=== PATIENT | female | born 1970 | race Caucasian/White ===

== ENCOUNTER → 2017-06-10 | Outpatient (CLI) | payer OTHER ==
--- NOTE | 2017-06-12 08:59 | MM ---
Reason for exam: screening (asymptomatic). Last mammogram was performed 1 year ago. History: Patient has history of colon cancer at age 40 and had first child at age 33. Excisional biopsy of the left breast, December 2011. Benign US LT VAD breast biopsy of the left breast, December 18, 2011. Took hormonal contraceptives for 2 years beginning at age 26. Physical Findings: A clinical breast exam by your physician is recommended on an annual basis and results should be correlated with mammographic findings. MG 3D Screening Mammo W/Cad Bilateral CC and MLO view(s) were taken. Prior study comparison: June 09, 2016, bilateral MG screening mammo w CAD. June 08, 2015, bilateral MG screening mammo w CAD. The breast tissue is heterogeneously dense. This may lower the sensitivity of mammography. No significant changes when compared with prior studies. ASSESSMENT: Benign, BI-RAD 2 RECOMMENDATION: Routine screening mammogram of both breasts in 1 year.
== END | disposition home or self-care (01) ==
LOC: RADMAMWWP 08:00
PROVIDERS: ATTEND Obstetrics & Gynecology
DX: Z12.31 Encounter for screening mammogram for malignant neoplasm of breast (principal)
CPT/HCPCS: 77063; G0202

== ENCOUNTER → 2018-06-17 | Outpatient (CLI) | payer OTHER ==
--- NOTE | 2018-06-18 13:12 | MM ---
Reason for exam: screening (asymptomatic). Last mammogram was performed 1 year ago. History: Patient has history of colon cancer at age 40 and had first child at age 33. Excisional biopsy of the left breast, December 2011. Benign US LT VAD breast biopsy of the left breast, December 18, 2011. Took hormonal contraceptives for 2 years beginning at age 26. Physical Findings: A clinical breast exam by your physician is recommended on an annual basis and results should be correlated with mammographic findings. MG 3D Screening Mammo W/Cad Bilateral CC and MLO view(s) were taken. Prior study comparison: June 10, 2017, bilateral MG 3d screening mammo w/cad. June 09, 2016, bilateral MG screening mammo w CAD. The breast tissue is heterogeneously dense. This may lower the sensitivity of mammography. Focal asymmetry 7.3cm from nipple right MLO view. This finding is changed when compared with previous exams. ASSESSMENT: Incomplete: need additional imaging evaluation, BI-RAD 0 RECOMMENDATION: Special view mammogram of the right breast. If lesion persists on supplemental views, image directed ultrasound is recommended. [facility] will attempt to contact patient to return for supplemental views and ultrasound if indicated.
== END | disposition home or self-care (01) ==
LOC: RADMAMWWP 08:42
PROVIDERS: ATTEND Obstetrics & Gynecology
DX: Z12.31 Encounter for screening mammogram for malignant neoplasm of breast (principal)
CPT/HCPCS: 77063; 77067

== ENCOUNTER → 2018-06-22 | Outpatient (CLI) | payer OTHER ==
--- NOTE | 2018-06-22 09:19 | MM ---
Reason for exam: additional evaluation requested from abnormal screening. Last mammogram was performed less than 1 month ago. History: Patient has history of colon cancer at age 40 and had first child at age 33. Excisional biopsy of the left breast, December 2011. Benign US LT VAD breast biopsy of the left breast, December 18, 2011. Took hormonal contraceptives for 2 years beginning at age 26. Physical Findings: Nurse did not find any significant physical abnormalities on exam. MG 3D Work Up W/Cad RT Spot compression CC, spot compression MLO, and LM view(s) were taken of the right breast. Prior study comparison: June 17, 2018, bilateral MG 3d screening mammo w/cad. June 10, 2017, bilateral MG 3d screening mammo w/cad. The breast tissue is heterogeneously dense. This may lower the sensitivity of mammography. The previously seen abnormality does not persist on additional views and appears as fibroglandular tissue on prior exams. These results were verbally communicated with the patient and result sheet given to the patient on 06/22/18. ASSESSMENT: Benign, BI-RAD 2 RECOMMENDATION: Return to routine screening mammogram schedule for both breasts.
== END | disposition home or self-care (01) ==
LOC: RADMAMWWP 08:18
PROVIDERS: ATTEND Obstetrics & Gynecology
DX: R92.8 Other abnormal and inconclusive findings on diagnostic imaging of breast (principal)
CPT/HCPCS: 77061; 77065

== ENCOUNTER → 2019-06-27 | Outpatient (CLI) | payer OTHER ==
--- NOTE | 2019-06-27 10:20 | MM ---
Reason for exam: screening (asymptomatic). Last mammogram was performed 1 year ago. History: Patient has history of colon cancer at age 40 and had first child at age 33. Excisional biopsy of the left breast, December 2011. Benign US LT VAD breast biopsy of the left breast, December 18, 2011. Took hormonal contraceptives for 2 years beginning at age 26. Physical Findings: A clinical breast exam by your physician is recommended on an annual basis and results should be correlated with mammographic findings. MG 3D Screening Mammo W/Cad Bilateral CC and MLO view(s) were taken. Prior study comparison: June 22, 2018, right breast MG 3d work up w/cad RT. June 17, 2018, bilateral MG 3d screening mammo w/cad. The breast tissue is heterogeneously dense. This may lower the sensitivity of mammography. No suspicious abnormality. No significant changes when compared with prior studies. ASSESSMENT: Negative, BI-RAD 1 RECOMMENDATION: Routine screening mammogram of both breasts in 1 year.
== END | disposition home or self-care (01) ==
LOC: RADMAMWWP 08:34
PROVIDERS: ATTEND Obstetrics & Gynecology
DX: Z12.31 Encounter for screening mammogram for malignant neoplasm of breast (principal)
CPT/HCPCS: 77063; 77067

== ENCOUNTER → 2020-07-12 | Outpatient (CLI) | payer OTHER ==
--- NOTE | 2020-07-16 09:27 | MM ---
Reason for exam: screening (asymptomatic). Last mammogram was performed 1 year ago. History: Patient has history of colon cancer at age 40 and had first child at age 33. Excisional biopsy of the left breast, December 2011. Benign US LT VAD breast biopsy of the left breast, December 18, 2011. Took hormonal contraceptives for 2 years beginning at age 26. Physical Findings: A clinical breast exam by your physician is recommended on an annual basis and results should be correlated with mammographic findings. MG 3D Screening Mammo W/Cad Bilateral CC and MLO view(s) were taken. Prior study comparison: June 27, 2019, bilateral MG 3d screening mammo w/cad. June 22, 2018, right breast MG 3d work up w/cad RT. The breast tissue is heterogeneously dense. This may lower the sensitivity of mammography. Focal asymmetry right CC view outer middle postition, not on XCCL. This finding is changed when compared with previous exams. ASSESSMENT: Incomplete: need additional imaging evaluation, BI-RAD 0 RECOMMENDATION: Special view mammogram of the right breast. If lesion persists on supplemental views, image directed ultrasound is recommended. [facility] will attempt to contact patient to return for supplemental views and ultrasound if indicated.
== END | disposition home or self-care (01) ==
LOC: RADMAMWWP 10:01
PROVIDERS: ATTEND Obstetrics & Gynecology
DX: Z12.31 Encounter for screening mammogram for malignant neoplasm of breast (principal)
CPT/HCPCS: 77063; 77067

== ENCOUNTER → 2020-07-17 | Outpatient (CLI) | payer OTHER ==
--- NOTE | 2020-07-17 09:15 | MM ---
Reason for exam: additional evaluation requested from abnormal screening. Last mammogram was performed less than 1 month ago. History: Patient has history of colon cancer at age 40 and had first child at age 33. Excisional biopsy of the left breast, December 2011. Benign US LT VAD breast biopsy of the left breast, December 18, 2011. Took hormonal contraceptives for 2 years beginning at age 26. Physical Findings: Nurse did not find any significant physical abnormalities on exam. MG 3D Work Up W/Cad RT CC and MLO view(s) were taken of the right breast. Prior study comparison: July 12, 2020, bilateral MG 3d screening mammo w/cad. June 27, 2019, bilateral MG 3d screening mammo w/cad. There are scattered fibroglandular densities. Central asymmetric density does not persist on spot 3D images. These results were verbally communicated with the patient and result sheet given to the patient on 07/17/20. ASSESSMENT: Negative, BI-RAD 1 RECOMMENDATION: Return to routine screening mammogram schedule for both breasts.
== END | disposition home or self-care (01) ==
LOC: RADMAMWWP 08:19
PROVIDERS: ATTEND Obstetrics & Gynecology
DX: R92.8 Other abnormal and inconclusive findings on diagnostic imaging of breast (principal)
CPT/HCPCS: 77061; 77065

== ENCOUNTER → 2021-07-23 | Outpatient (CLI) | payer BC ==
[2021-07-23 10:06] VITALS: BP 101/65; PULSE 71; RESP 16; TEMP 98.1
--- NOTE | 2021-07-23 11:04 | P.HPOB ---
History of Present Illness H&P Date: 07/23/21 Chief Complaint: The patient is here for her routine gynecologic exam and ma mmogram. This is a 51-year-old with an LMP of 07/09/2021. The patient is here to establish with this office. She is without gynecologic complaints. Her is status post vasectomy. Her menstrual periods are regular every month. Review of Systems The patient believes she has gained about 15 pounds over the past 2 years. She denies respiratory, cardiac, or GI problems. Past Medical History Past Medical History: Cancer Additional Past Medical History / Comment(s): hx colon cancer 2010 s/p colon resection and chemo. Seasonal ALLERGIES. 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 History of Any Multi-Drug Resistant Organisms: None Reported Past Surgical History: Bowel Resection, Section Additional Past Surgical History / Comment(s): Bowel resection for cancer in 2010. colonoscopy 2018(next after 2-3yr). 2 Past Anesthesia/Blood Transfusion Reactions: Motion Sickness, Postoperative Nausea & Vomiting (PONV) Past Psychological History: Depression Smoking Status: Never smoker Past Alcohol Use History: Occasional (4 or 5 per week) Past Drug Use History: None Reported Additional History: She has been since 1997 and does not work outside the home. - Past Family History Mother Family Medical History: No Reported History Additional Family Medical History / Comment(s): Maternal aunt had ovarian cancer. There is no other history of cancer of the breast, uterus, ovaries, or colon. Father Family Medical History: No Reported History Medications and Allergies Home Medications Medication Instructions Recorded Confirmed Type ALPRAZolam [Xanax] 0.5 mg PO DIRECTED PRN 07/11/16 07/23/21 History Citalopram Hydrobromide [CeleXA] 20 mg PO 1500 07/11/16 07/23/21 History Loratadine [Claritin] 10 mg PO DAILY PRN 07/11/16 07/23/21 History Melatonin 5 mg PO HS 07/11/16 07/23/21 History Multivitamins, Thera [Multivitamin] 1 tab PO DAILY 07/11/16 07/23/21 History Temazepam [Restoril] 30 mg PO HS 07/11/16 07/23/21 History Allergies Allergy/AdvReac Type Severity Reaction Status Date / Time No Known Allergies Allergy Verified 07/23/21 10:01 Exam Vital Signs Temp Pulse Resp BP Pulse Ox 07/23/21 10:01 98.1 F 71 16 101/65 100 Intake and Output 07/22/21 07/23/21 07/23/21 22:59 06:59 14:59 Other: Weight 66.678 kg Height 5 feet 4-1/2 inches, weight 147 pounds, BMI 24.8. This is a well-developed well-nourished white female who is alert and oriented times 3 in no acute distress. HEENT: Within normal limits. NECK: Supple without mass or thyromegaly. CHEST AND LUNGS: Clear to auscultation. HEART: Regular rate and rhythm. BREASTS: Are without mass or discharge. AXILLARY EXAM: Negative for adenopathy. BACK: Negative for CVA tenderness. ABDOMEN: Soft, nontender, without palpable masses. PELVIC EXAM: Normal external genitalia. Cervix and vagina appear normal. Cervix appears nulliparous. There is no unusual discharge. There is no evidence of prolapse. The uterus is midposition, nongravid size and nontender. There are no palpable adnexal masses or tenderness. RECTAL EXAM: Rectovaginal exam is negative for mass or tenderness and is negative for occult blood. EXTREMITIES: Nontender. IMPRESSION: 1. 51 year old premenopausal female whose is status post vasectomy, with normal gynecologic exam. 2. History of colon cancer in 2010 with no evidence of recurrence on exam today. PLAN: 1. Pap smear cotest was performed. 2. Self breast awareness was discussed with the patient. We have also discussed symptoms associated with inflammatory breast cancer. 3. Screening mammogram will be done today. 4. Osteoporosis prevention was discussed. I have stressed the importance of adequate calcium, vitamin D and regular exercise. Recommended amounts of calcium and vitamin D were also discussed. 5. She has completed her Covid vaccination series. 6. She was advised to return in one year for her annual well woman exam.
== END ==
LOC: WWCWWP 09:52
PROVIDERS: ATTEND Obstetrics & Gynecology
DX: Z12.31 Encounter for screening mammogram for malignant neoplasm of breast (principal); Z01.419 Encounter for gynecological examination (general) (routine) without abnormal findings; F32.A Depression, unspecified; Z85.038 Personal history of other malignant neoplasm of large intestine
CPT/HCPCS: 77067

== ENCOUNTER → 2022-07-29 | Outpatient (CLI) | payer BC ==
[2022-07-29 08:12] VITALS: BP 116/84; PULSE 66; RESP 15
--- NOTE | 2022-07-29 08:43 | P.HPOB ---
History of Present Illness H&P Date: 07/29/22 Chief Complaint: The patient is here for her routine gynecologic exam and ma mmogram. This is a 52-year-old with an LMP of 05/29/2022. The patient's is status post vasectomy. Her menstrual periods were regular about every 3-1/2 weeks until her LMP. It has now been about 2 months since her LMP. She denies hot flashes. She is otherwise without complaints. Review of Systems The patient has lost 9 pounds over the last year. She attributes the weight loss 2 increased stress associated with her mother's health conditions. She denies respiratory, cardiac, or G.I. problems. Past Medical History Past Medical History: Cancer Additional Past Medical History / Comment(s): hx colon cancer 2010 s/p colon resection and chemo. Seasonal ALLERGIES. 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 History of Any Multi-Drug Resistant Organisms: None Reported Past Surgical History: Bowel Resection, Section Additional Past Surgical History / Comment(s): Bowel resection for cancer in 2010. colonoscopy 2018(next after 2-3yr). 2 Past Anesthesia/Blood Transfusion Reactions: Motion Sickness, Postoperative Nausea & Vomiting (PONV) Past Psychological History: Depression Smoking Status: Never smoker Past Alcohol Use History: Occasional (3 glasses of wine per week) Past Drug Use History: None Reported Additional History: She has been since 1997 and does not work outside of the home. - Past Family History Mother Family Medical History: No Reported History Additional Family Medical History / Comment(s): Maternal aunt had ovarian cancer. There is no other history of cancer of the breast, uterus, ovaries, or colon. Father Family Medical History: No Reported History Medications and Allergies Home Medications Medication Instructions Recorded Confirmed Type ALPRAZolam [Xanax] 0.5 mg PO DIRECTED PRN 07/11/16 07/29/22 History Citalopram Hydrobromide [CeleXA] 20 mg PO 1500 07/11/16 07/29/22 History Loratadine [Claritin] 10 mg PO DAILY PRN 07/11/16 07/29/22 History Melatonin 5 mg PO HS 07/11/16 07/29/22 History Multivitamins, Thera [Multivitamin] 1 tab PO DAILY 07/11/16 07/29/22 History Temazepam [Restoril] 30 mg PO HS 07/11/16 07/29/22 History Cholecalciferol [Vitamin D3 (25 25 mcg PO DAILY 07/29/22 07/29/22 History Mcg = 1000 Iu)] Allergies Allergy/AdvReac Type Severity Reaction Status Date / Time No Known Allergies Allergy Verified 07/29/22 08:07 Exam Vital Signs Pulse Resp BP Pulse Ox 07/29/22 08:09 66 15 116/84 100 Intake and Output 07/28/22 07/29/22 07/29/22 22:59 06:59 14:59 Other: Weight 62.596 kg Height 5 feet 4 inches, weight 138 pounds, BMI 23.7. This is a well-developed well-nourished white female who is alert and oriented times 3 in no acute distress. HEENT: Within normal limits. NECK: Supple without mass or thyromegaly. CHEST AND LUNGS: Clear to auscultation. HEART: Regular rate and rhythm. BREASTS: Are without mass or discharge. AXILLARY EXAM: Negative for adenopathy. BACK: Negative for CVA tenderness. ABDOMEN: Soft, nontender, without palpable masses. PELVIC EXAM: Normal external genitalia. Cervix and vagina appear normal. There is no unusual discharge. There is no evidence of prolapse. The uterus is midposition, nongravid size and nontender. There are no palpable adnexal masses or tenderness. RECTAL EXAM: Rectovaginal exam is negative for mass or tenderness and is negative for occult blood. EXTREMITIES: Nontender. IMPRESSION: 1. 52-year-old perimenopausal female whose is status post vasectomy with normal gynecologic exam. 2. History of colon cancer with no evidence of recurrence on exam today. PLAN: 1. Pap smear was deferred since she had a negative Pap smear cotest on 07/23/2021. 2. Self breast awareness was discussed with the patient. We have also discussed symptoms associated with inflammatory breast cancer. 3. Screening mammogram will be done today. 4. Osteoporosis prevention was discussed. I have stressed the importance of adequate calcium, vitamin D and regular exercise. Recommended amounts of calcium and vitamin D were also discussed. 5. She has completed her colvid vaccination series and has received 1 booster. 6. She is due for her colonoscopy and states she will be seeing Dr. Workman for this. 7. She was advised to return in one year for her annual well woman exam.
--- NOTE | 2022-07-30 09:07 | MM ---
Reason for Exam: Screening (asymptomatic). Last mammogram was performed 1 year(s) and 1 month(s) ago. Patient History: Menarche at age 13. First Full-Term at age 33. Late child-bearing (after 30). Perimenopausal. Colorectal cancer, age 40. Previous chest radiation therapy. Hormonal Contraceptives for 2 years from age 26 until age 29. 12/2011, Excisional Biopsy on the Left side. 12/18/2011, Benign Core Biopsy on the left side. Risk Values: Priyanka 5 year model risk: 2.1%. NCI Lifetime model risk: 17.4%. Prior Study Comparison: 07/12/2020 Bilateral Screening Mammogram, [facility]. 07/17/2020 Right Diagnostic Mammogram, [facility]. 07/23/2021 Bilateral Screening Mammogram, [facility]. Tissue Density: There are scattered fibroglandular densities. Findings: Analyzed By CAD. There is no suspicious group of microcalcifications or new suspicious mass in either breast. Overall Assessment: Negative, BI-RAD 1 Management: Screening Mammogram of both breasts in 1 year. A clinical breast exam by your physician is recommended on an annual basis and results should be correlated with mammographic findings. [facility] will attempt to contact patient to return for supplemental views and ultrasound if indicated. Electronically signed and approved by: Munir Nails DO
== END ==
LOC: WWCWWP 08:00
PROVIDERS: ATTEND Obstetrics & Gynecology
DX: Z01.419 Encounter for gynecological examination (general) (routine) without abnormal findings (principal); Z12.31 Encounter for screening mammogram for malignant neoplasm of breast; Z85.038 Personal history of other malignant neoplasm of large intestine
CPT/HCPCS: 77063; 77067

== ENCOUNTER 2022-12-23 08:50 | Day surgery (SDC) | payer BC ==
[2022-12-16 12:26] VITALS: BMI 23.1
[2022-12-23 09:38] VITALS: TEMP 98
[2022-12-23] MEDS ORDERED: LIDOCAINE 1% (10MG/ML) FOR IV START INTRADERMA ONE (09:49)
[2022-12-23] MEDS ORDERED: LACTATED RINGERS 1,000 ML IV ONE ×2 (09:49)
[2022-12-23] MEDS ORDERED: PROPOFOL 10 MG/ML 20 ML VIAL IV ONE (09:50)
--- NOTE | 2022-12-23 09:56 | P.GSHP ---
History of Present Illness H&P Date: 12/23/22 Chief Complaint: Colon cancer screening, history of colon cancer 52-year-old female here for colonoscopy. Last colonoscopy 3 years ago. Patient was having some mild pulling discomfort on the right-hand side recently. No bowel complaints. History of previous right colectomy for cancer. Past Medical History Past Medical History: Cancer Additional Past Medical History / Comment(s): hx colon cancer 2010 s/p colon resection and chemo. Seasonal ALLERGIES. 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 History of Any Multi-Drug Resistant Organisms: None Reported Past Surgical History: Bowel Resection, Section Additional Past Surgical History / Comment(s): Bowel resection for cancer in 2010. colonoscopy 2019(next after 2-3yr). 2 Past Anesthesia/Blood Transfusion Reactions: Motion Sickness, Postoperative Nausea & Vomiting (PONV) Smoking Status: Never smoker - Past Family History Mother Family Medical History: No Reported History Additional Family Medical History / Comment(s): Maternal aunt had ovarian cancer. There is no other history of cancer of the breast, uterus, ovaries, or colon. Father Family Medical History: No Reported History Medications and Allergies Home Medications Medication Instructions Recorded Confirmed Type ALPRAZolam [Xanax] 0.5 mg PO DIRECTED PRN 07/11/16 12/23/22 History Citalopram Hydrobromide [CeleXA] 20 mg PO 1500 07/11/16 12/23/22 History Loratadine [Claritin] 10 mg PO DAILY PRN 07/11/16 12/23/22 History Melatonin 5 mg PO HS 07/11/16 12/23/22 History Multivitamins, Thera [Multivitamin] 1 tab PO DAILY 07/11/16 12/23/22 History Temazepam [Restoril] 30 mg PO HS 07/11/16 12/23/22 History Cholecalciferol [Vitamin D3 (25 25 mcg PO DAILY 07/29/22 12/23/22 History Mcg = 1000 Iu)] Allergies Allergy/AdvReac Type Severity Reaction Status Date / Time No Known Allergies Allergy Verified 12/23/22 09:41 Surgical - Exam Vital Signs Temp Pulse Resp BP Pulse Ox 98.0 F 72 18 149/65 99 12/23/22 09:31 12/23/22 09:31 12/23/22 09:31 12/23/22 09:31 12/23/22 09:31 Physical exam: General: Well-developed, well-nourished HEENT: Normocephalic, sclerae nonicteric Abdomen: Nontender, nondistended Extremities: No edema Neuro: Alert and oriented Assessment and Plan (1) Colon cancer screening Narrative/Plan: Will proceed with colonoscopy at this time. Current Visit: Yes Status: Acute Code(s): Z12.11 - ENCOUNTER FOR SCREENING FOR MALIGNANT NEOPLASM OF COLON SNOMED Code(s): 917096320
--- NOTE | 2022-12-23 10:11 | P.PCN ---
Date of Procedure: 12/23/22 Procedure(s) Performed: PREOPERATIVE DIAGNOSIS: History of colon cancer POSTOPERATIVE DIAGNOSIS: Normal exam post-right colectomy PROCEDURE: Colonoscopy ANESTHESIA: MAC SURGEON: Jose Workman M.D. SPECIMENS: None ENDOSCOPIC PROCEDURE: The patient was placed on the endoscopy table in the left decubitus position. The Olympus colonoscope was inserted into the anus and passed under direct visualization to the ileocolonic anastomosis. From that point the scope was slowly withdrawn inspecting all surfaces carefully. There were no neoplastic inflammatory or polypoid lesions throughout the transverse, descending, sigmoid and rectum. There was no visible diverticulosis noted. Digital rectal examination was normal. The patient was taken to the recovery room in stable condition per anesthesia guidelines. RECOMMENDATIONS: Resume diet. Repeat colonoscopy 3 years. If patient's abdominal pain persists consider CT abdomen and pelvis.
[2022-12-23 10:20] VITALS: RESP 16
[2022-12-23 10:42] VITALS: BP 105/62; PULSE 65
== END 2022-12-23 11:03 | disposition home or self-care (01) ==
LOC: ORWHC2ENDO 08:50
PROVIDERS: ATTEND Surgery
DX: Z12.11 Encounter for screening for malignant neoplasm of colon (principal); K57.30 Diverticulosis of large intestine without perforation or abscess without bleeding; Z86.010 Personal history of colon polyps; Z90.49 Acquired absence of other specified parts of digestive tract; Z79.899 Other long term (current) drug therapy
CPT/HCPCS: 81025; 45378; J2704

== ENCOUNTER → 2023-08-04 | Outpatient (CLI) | payer BC ==
--- NOTE | 2023-08-04 10:01 | P.HPOB ---
History of Present Illness H&P Date: 08/04/23 Chief Complaint: The patient is here for her routine gynecologic exam and ma mmogram. This is a 53-year-old with an LMP of 07/26/2023. The patient's is status post vasectomy. Menstrual periods have been somewhat irregular every 1-1/2-3 months during the past year. She denies any significant hot flashes. She is otherwise without gynecologic complaints. Review of Systems The patient has lost 12 pounds over the last year. She denies respiratory, cardiac, or G.I. problems. Past Medical History Past Medical History: Cancer Additional Past Medical History / Comment(s): hx colon cancer 2010 s/p colon resection and chemo. Seasonal ALLERGIES. 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 History of Any Multi-Drug Resistant Organisms: None Reported Past Surgical History: Bowel Resection, Section Additional Past Surgical History / Comment(s): Bowel resection for cancer in 2010. colonoscopy 2022(next after 3yr). 2 Past Anesthesia/Blood Transfusion Reactions: Motion Sickness, Postoperative Nausea & Vomiting (PONV) Smoking Status: Never smoker Past Alcohol Use History: Occasional (2-3 glasses of wine per week.) Past Drug Use History: None Reported Additional History: She has been since 1997 and does not work outside the home. - Past Family History Mother Family Medical History: No Reported History Additional Family Medical History / Comment(s): Maternal aunt had ovarian cancer. There is no other history of cancer of the breast, uterus, ovaries, or colon. Father Family Medical History: No Reported History Medications and Allergies Home Medications Medication Instructions Recorded Confirmed Type ALPRAZolam [Xanax] 0.5 mg PO DIRECTED PRN 07/11/16 08/04/23 History Citalopram Hydrobromide [CeleXA] 20 mg PO 1500 07/11/16 08/04/23 History Loratadine [Claritin] 10 mg PO DAILY PRN 07/11/16 08/04/23 History Melatonin 5 mg PO HS 07/11/16 08/04/23 History Multivitamins, Thera [Multivitamin] 1 tab PO DAILY 07/11/16 08/04/23 History Temazepam [Restoril] 30 mg PO HS 07/11/16 08/04/23 History Cholecalciferol [Vitamin D3 (25 25 mcg PO DAILY 07/29/22 08/04/23 History Mcg = 1000 Iu)] Allergies Allergy/AdvReac Type Severity Reaction Status Date / Time No Known Allergies Allergy Verified 08/04/23 09:23 Exam Intake and Output 08/03/23 08/04/23 08/04/23 22:59 06:59 14:59 Other: Weight 57.153 kg Blood pressure 114/74, height 5 feet 4 inches, weight 126 pounds, BMI 21.6, temperature 97.8, pulse 62, pulse oximeter 99%. This is a well-developed well-nourished white female who is alert and oriented times 3 in no acute distress. HEENT: Within normal limits. NECK: Supple without mass or thyromegaly. CHEST AND LUNGS: Clear to auscultation. HEART: Regular rate and rhythm. BREASTS: Are without mass or discharge. AXILLARY EXAM: Negative for adenopathy. BACK: Negative for CVA tenderness. ABDOMEN: Soft, nontender, without palpable masses. PELVIC EXAM: Normal external genitalia with minimal atrophy. Cervix and vagina appear normal. There is no unusual discharge. There is no evidence of prolapse. The uterus is midposition, nongravid size and nontender. There are no palpable adnexal masses or tenderness. RECTAL EXAM: Rectovaginal exam is negative for mass or tenderness and is negative for occult blood. EXTREMITIES: Nontender. IMPRESSION: 1. 53-year-old perimenopausal female whose is status post vasectomy with one year history of mild menstrual irregularity without vasomotor symptoms, with normal gynecologic exam. 2. History of colon cancer with no evidence of recurrence on exam. PLAN: 1. Pap smear was deferred since she had a negative Pap smear cotest on 07/13/2022. 2. Self breast awareness was discussed with the patient. We have also discussed symptoms associated with inflammatory breast cancer. 3. Screening mammogram will be done today. 4. Osteoporosis prevention was discussed. I have stressed the importance of adequate calcium, vitamin D and regular exercise. Recommended amounts of calcium and vitamin D were also discussed. 5. She will continue to keep a menstrual calendar and call if menstrual prob lems. 6. She was advised to return in one year for her annual well woman exam.
[2023-08-04 10:16] VITALS: BP 114/74; PULSE 62; RESP 17; TEMP 97.8
--- NOTE | 2023-08-05 11:18 | MM ---
Reason for Exam: Screening (asymptomatic). Last screening mammogram was performed 12 month(s) ago. Patient History: Menarche at age 13. First Full-Term at age 33. Late child-bearing (after 30). Perimenopausal. Colorectal cancer, age 40. Previous chest radiation therapy. Hormonal Contraceptives for 2 years from age 26 until age 29. 12/2011, Excisional Biopsy on the Left side. 12/18/2011, Benign Core Biopsy on the left side. Risk Values: Priyanka 5 year model risk: 2.2%. NCI Lifetime model risk: 17.1%. Prior Study Comparison: 07/17/2020 Right Diagnostic Mammogram, [facility]. 07/23/2021 Bilateral Screening Mammogram, [facility]. 07/29/2022 Bilateral MG 3D screening mammo w/cad, [facility]. Tissue Density: The breast tissue is heterogeneously dense. This may lower the sensitivity of mammography. Findings: Analyzed By CAD. Asymmetric density upper outer right breast 8.8 cm from the nipple. Left breast is free of asymmetric density or mass. No suspicious dilatation seen. ASSESSMENT:. Overall Assessment: Incomplete: need additional imaging evaluation, BI-RAD 0 Management: Diagnostic Mammogram of the right breast. . Patient should continue monthly self-breast exams. A clinical breast exam by your physician is recommended on an annual basis. This exam should not preclude additional follow-up of suspicious palpable abnormalities. Note on Priyanka scores and lifetime risk: 1. A Priyanka score greater than 3% is considered moderate risk. If this is the case, consider specialist referral to assess eligibility for a risk reducing agent. 2. If overall lifetime risk for the development of breast cancer is 20% or higher, the patient may qualify for future screening with alternating mammogram and breast MRI. Electronically signed and approved by: Ha Higginbotham M.D. Radiologis
== END ==
LOC: WWCWWP 09:10
PROVIDERS: ATTEND Obstetrics & Gynecology
DX: Z12.31 Encounter for screening mammogram for malignant neoplasm of breast (principal); Z85.038 Personal history of other malignant neoplasm of large intestine; Z78.0 Asymptomatic menopausal state; Z92.21 Personal history of antineoplastic chemotherapy
CPT/HCPCS: 77063; 77067

== ENCOUNTER → 2023-08-06 | Outpatient (CLI) | payer BC ==
--- NOTE | 2023-08-06 14:34 | MM ---
Reason for Exam: Additional evaluation requested from abnormal screening. Last screening mammogram was performed less than 1 month ago. Patient History: Menarche at age 13. First Full-Term at age 33. Late child-bearing (after 30). Perimenopausal. Colorectal cancer, age 40. Previous chest radiation therapy. Hormonal Contraceptives for 2 years from age 26 until age 29. 12/2011, Excisional Biopsy on the Left side. 12/18/2011, Benign Core Biopsy on the left side. Risk Values: Priyanka 5 year model risk: 2.2%. NCI Lifetime model risk: 17.1%. Tissue Density: Right: The breast tissue is heterogeneously dense. This may lower the sensitivity of mammography. Findings: Analyzed By CAD. Stable asymmetric density upper outer right breast 8.5 cm from the nipple. Additional views are recommended. Overall Assessment: Incomplete: need additional imaging evaluation, BI-RAD 0 Management: Diagnostic Mammogram of the right breast. . Results were given to the patient verbally at the time of exam. Patient should continue monthly self-breast exams. A clinical breast exam by your physician is recommended on an annual basis. This exam should not preclude additional follow-up of suspicious palpable abnormalities. Note on Priyanka scores and lifetime risk: 1. A Priyanka score greater than 3% is considered moderate risk. If this is the case, consider specialist referral to assess eligibility for a risk reducing agent. 2. If overall lifetime risk for the development of breast cancer is 20% or higher, the patient may qualify for future screening with alternating mammogram and breast MRI. Electronically signed and approved by: Ha Higginbotham M.D. Radiologis
--- NOTE | 2023-08-10 09:33 | USB ---
Reason for Exam: Additional evaluation requested from abnormal screening. Patient History: Menarche at age 13. First Full-Term at age 33. Late child-bearing (after 30). Perimenopausal. Colorectal cancer, age 40. Previous chest radiation therapy. Hormonal Contraceptives for 2 years from age 26 until age 29. 12/2011, Excisional Biopsy on the Left side. 12/18/2011, Benign Core Biopsy on the left side. Risk Values: Priyanka 5 year model risk: 2.2%. NCI Lifetime model risk: 17.1%. Technique: Method: Targeted. Prior Study Comparison: 07/23/2021 Bilateral Screening Mammogram, [facility]. 07/29/2022 Bilateral MG 3D screening mammo w/cad, [facility]. 08/04/2023 Bilateral MG 3D screening mammo w/cad, [facility]. Findings: The upper outer quadrant of the right breast, the axilla of the right breast and the retroareolar of the right breast were scanned. Small elongate hypoechoic lesion too small to characterize although likely reflecting a small cyst. Located at the right 10:00 position 9 cm from the nipple measuring 5.2 mm. Six-month follow-up is recommended. Overall Assessment: Probably benign, BI-RAD 3 Management: Diagnostic Mammogram of the right breast in 6 months. A clinical breast exam by your physician is recommended on an annual basis and results should be correlated with mammographic findings. This exam should not preclude additional follow-up of suspicious palpable abnormalities. Results were given to the patient verbally at the time of exam. Electronically signed and approved by: Ha Higginbotham M.D. Radiologis
--- NOTE | 2023-08-11 12:18 | P.PN ---
Progress Note - Text Progress Note Date: 08/11/23 OUTPATIENT FOLLOW-UP NOTE TEST(S)/RESULTS: Screening mammogram done on 08/04/2023 was incomplete and a right breast workup was required. A diagnostic right mammogram with right breast ultrasound was done on 08/06/2023 and was probably benign. METHOD OF NOTIFICATION: The patient was notified by the radiology Department on 08/06/2023. PATIENT COMMENTS: DIAGNOSIS: Probably benign mammogram with right breast workup. DISCUSSION: 6 month diagnostic right breast mammogram was recommended. The o rder slip will be mailed to the patient for this. PLAN: Above.
== END | disposition home or self-care (01) ==
LOC: RADMAMWWP 14:07
PROVIDERS: ATTEND Obstetrics & Gynecology
DX: R92.331 Mammographic heterogeneous density, right breast (principal)
CPT/HCPCS: 77061; 77065

== ENCOUNTER → 2024-02-09 | Outpatient (CLI) | payer BC ==
--- NOTE | 2024-02-09 09:48 | MM ---
Reason for Exam: Follow-up at short interval from prior study. Last screening mammogram was performed 6 month(s) ago. Patient History: Menarche at age 13. First Full-Term at age 33. Late child-bearing (after 30). Perimenopausal. Patient has history of breast feeding. Colorectal cancer, age 40. Previous chest radiation therapy. Hormonal Contraceptives for 2 years from age 26 until age 29. 12/2011, Excisional Biopsy on the Left side. 12/18/2011, Benign Core Biopsy on the left side. Last menstrual period: 11/20/2023 Risk Values: Priyanka 5 year model risk: 2.2%. NCI Lifetime model risk: 17.1%. Prior Study Comparison: 06/22/2018 Right Diagnostic Mammogram, [facility]. 06/27/2019 Bilateral Screening Mammogram, [facility]. 07/12/2020 Bilateral Screening Mammogram, [facility]. 07/17/2020 Right Diagnostic Mammogram, [facility]. 07/23/2021 Bilateral Screening Mammogram, [facility]. 07/29/2022 Bilateral MG 3D screening mammo w/cad, [facility]. 08/04/2023 Bilateral MG 3D screening mammo w/cad, [facility]. 08/06/2023 Right MG 3D work up w/cad RT, [facility]. Tissue Density: Right: The breasts are heterogeneously dense, which may obscure small masses. Findings: Analyzed By CAD. The pattern is stable. The focal asymmetries in the upper outer right breast are less apparent than comparison. Suspicious underlying mass is not identified. No suspicious groups of microcalcifications, spiculated or lobular masses, architectural distortion or other secondary signs of malignancy are mammographically apparent. Overall Assessment: Benign, BI-RAD 2 Management: Screening Mammogram of both breasts in 6 months. A negative mammogram report should not preclude additional follow up of suspicious palpable abnormalities. Patient should continue monthly self breast exam. A clinical breast exam by your physician is recommended on an annual basis and results should be correlated with mammographic findings. Note on Priyanka scores and lifetime risk: 1. A Priyanka score greater than 3% is considered moderate risk. If this is the case, consider specialist referral to assess eligibility for a risk reducing agent. 2. If overall lifetime risk for the development of breast cancer is 20% or higher, the patient may qualify for future screening with alternating mammogram and breast MRI. Electronically signed and approved by: Tomas Dey D.O. Radiologis
== END | disposition home or self-care (01) ==
LOC: RADMAMWWP 09:11
PROVIDERS: ATTEND Obstetrics & Gynecology
DX: R92.331 Mammographic heterogeneous density, right breast (principal); R92.8 Other abnormal and inconclusive findings on diagnostic imaging of breast
CPT/HCPCS: 77061; 77065

== ENCOUNTER → 2024-08-09 | Outpatient (CLI) | payer BC ==
[2024-08-09 09:42] VITALS: BP 98/65; PULSE 77; RESP 16; TEMP 97.9
--- NOTE | 2024-08-09 09:57 | P.HPOB ---
History of Present Illness H&P Date: 08/09/24 Chief Complaint: The patient is here for her routine gynecologic exam and ma mmogram. This is a 54-year-old G2, P2 with an LMP of April 2024. Her menstrual periods have been spacing out even more and have been short about every 3 months. She denies any significant hot flashes. She is otherwise without gynecologic complaints. Review of Systems The patient has gained 33 pounds over the last year. She attributes this to increased stress and much of this is related to caring for her elderly parents. She denies respiratory, cardiac, or G.I. problems. Past Medical History Past Medical History: Cancer Additional Past Medical History / Comment(s): hx colon cancer 2010 s/p colon resection and chemo. Seasonal ALLERGIES. 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 History of Any Multi-Drug Resistant Organisms: None Reported Past Surgical History: Bowel Resection, Section Additional Past Surgical History / Comment(s): Bowel resection for cancer in 2010. colonoscopy 2022(next after 3yr). 2 Past Anesthesia/Blood Transfusion Reactions: Motion Sickness, Postoperative Nausea & Vomiting (PONV) Past Psychological History: Depression Smoking Status: Never smoker Past Alcohol Use History: Occasional (2-3 drinks per week.) Past Drug Use History: None Reported Additional History: She has been since 1997. She does not work outside of the home. 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 - Past Family History Mother Family Medical History: No Reported History Additional Family Medical History / Comment(s): Maternal aunt had ovarian cancer. There is no other history of cancer of the breast, uterus, ovaries, or colon. Father Family Medical History: No Reported History Medications and Allergies Home Medications Medication Instructions Recorded Confirmed Type ALPRAZolam [Xanax] 0.5 mg PO DIRECTED PRN 07/11/16 08/04/23 History Citalopram Hydrobromide [CeleXA] 20 mg PO 1500 07/11/16 08/04/23 History Loratadine [Claritin] 10 mg PO DAILY PRN 07/11/16 08/04/23 History Melatonin 5 mg PO HS 07/11/16 08/04/23 History Multivitamins, Thera [Multivitamin] 1 tab PO DAILY 07/11/16 08/04/23 History Temazepam [Restoril] 30 mg PO HS 07/11/16 08/04/23 History Cholecalciferol [Vitamin D3 (25 25 mcg PO DAILY 07/29/22 08/04/23 History Mcg = 1000 Iu)] Allergies Allergy/AdvReac Type Severity Reaction Status Date / Time No Known Allergies Allergy Verified 08/09/24 09:31 Exam Vital Signs Temp Pulse Resp BP Pulse Ox 08/09/24 09:33 97.9 F 77 16 98/65 99 Intake and Output 08/08/24 08/09/24 08/09/24 22:59 06:59 14:59 Other: Weight 72.121 kg Height 5 feet 4 inches, weight 159 pounds, BMI 27.3. This is a well-developed well-nourished white female who is alert and oriented times 3 in no acute distress. HEENT: Within normal limits. NECK: Supple without mass or thyromegaly. CHEST AND LUNGS: Clear to auscultation. HEART: Regular rate and rhythm. BREASTS: Are without mass or discharge. AXILLARY EXAM: Negative for adenopathy. BACK: Negative for CVA tenderness. ABDOMEN: Soft, nontender, without palpable masses. PELVIC EXAM: Normal external genitalia with minimal atrophy. Cervix and vagina appear normal with minimal atrophy. There is no unusual discharge. There is no evidence of prolapse. The uterus is midposition, nongravid size and nontender. There are no palpable adnexal masses or tenderness. RECTAL EXAM: Rectovaginal exam is negative for mass or tenderness and is negative for occult blood. EXTREMITIES: Nontender. IMPRESSION: 1. 54-year-old perimenopausal female with normal gynecologic exam. 2. Oligomenorrhea consistent with the perimenopause. PLAN: 1. Pap smear was deferred since she had a negative Pap smear cotest on 06/12/2022. 2. Self breast awareness was discussed with the patient. We have also discussed symptoms associated with inflammatory breast cancer. 3. Screening mammogram will be done today. 4. Osteoporosis prevention was discussed. I have stressed the importance of adequate calcium, vitamin D and regular exercise. Recommended amounts of calcium and vitamin D were also discussed. 5. She will continue to keep a menstrual calendar and call if menstrual problems. 6. She was advised to return in one year for her annual well woman exam.
--- NOTE | 2024-08-09 15:21 | MM ---
Reason for Exam: Screening (asymptomatic). Last screening mammogram was performed 12 month(s) ago. Patient History: Menarche at age 13. First Full-Term at age 33. Late child-bearing (after 30). Perimenopausal. Patient has history of breast feeding. Colorectal cancer, age 40. Previous chest radiation therapy. Hormonal Contraceptives for 2 years from age 26 until age 29. 12/2011, Excisional Biopsy on the Left side. 12/18/2011, Benign Core Biopsy on the left side. Risk Values: Priyanka 5 year model risk: 2.3%. NCI Lifetime model risk: 16.8%. Prior Study Comparison: 08/04/2023 Bilateral MG 3D screening mammo w/cad, [facility]. 08/06/2023 Right MG 3D work up w/cad RT, [facility]. 02/09/2024 Right MG 3D diag mammo w/cad RT, [facility]. Tissue Density: The breasts are heterogeneously dense, which may obscure small masses. Findings: Analyzed By CAD. Asymmetric density outer right cc view 10 cm from the nipple. Additional views recommended. No suspicious mitral opacification seen within either breast. No Left-sided breast mass present. Overall Assessment: Incomplete: need additional imaging evaluation, BI-RAD 0 Management: Diagnostic Mammogram of the right breast. . Patient should continue monthly self-breast exams. A clinical breast exam by your physician is recommended on an annual basis. This exam should not preclude additional follow-up of suspicious palpable abnormalities. Note on Priyanka scores and lifetime risk: 1. A Priyanka score greater than 3% is considered moderate risk. If this is the case, consider specialist referral to assess eligibility for a risk reducing agent. 2. If overall lifetime risk for the development of breast cancer is 20% or higher, the patient may qualify for future screening with alternating mammogram and breast MRI. [facility], , 08/09/2024 3:18 PM. Electronically signed and approved by: Ha Higginbotham M.D. Radiologis
== END ==
LOC: WWCWWP 09:11
PROVIDERS: ATTEND Obstetrics & Gynecology
DX: Z12.31 Encounter for screening mammogram for malignant neoplasm of breast (principal); N91.5 Oligomenorrhea, unspecified
CPT/HCPCS: 77063; 77067

== ENCOUNTER → 2024-08-11 | Outpatient (CLI) | payer BC ==
--- NOTE | 2024-08-11 07:38 | MM ---
Reason for Exam: Additional evaluation requested from abnormal screening. Last screening mammogram was performed less than 1 month ago. Patient History: Menarche at age 13. First Full-Term at age 33. Late child-bearing (after 30). Perimenopausal. Patient has history of breast feeding. Colorectal cancer, age 40. Previous chest radiation therapy. Hormonal Contraceptives for 2 years from age 26 until age 29. 12/2011, Excisional Biopsy on the Left side. 12/18/2011, Benign Core Biopsy on the left side. Risk Values: Priyanka 5 year model risk: 2.3%. NCI Lifetime model risk: 16.8%. Prior Study Comparison: 07/29/2022 Bilateral MG 3D screening mammo w/cad, [facility]. 08/04/2023 Bilateral MG 3D screening mammo w/cad, [facility]. 08/06/2023 Right US breast workup limited RT, [facility]. 08/06/2023 Right MG 3D work up w/cad RT, [facility]. 02/09/2024 Right MG 3D diag mammo w/cad RT, [facility]. 08/09/2024 Bilateral MG 3D screening mammo w/cad, [facility]. Tissue Density: Right: The breasts are heterogeneously dense, which may obscure small masses. Findings: Analyzed By CAD. Persistent but improved asymmetric density upper outer right breast 9 cm from the nipple measuring 2 cm in size. Ultrasound is advised. Overall Assessment: Incomplete: need additional imaging evaluation, BI-RAD 0 Management: Diagnostic Breast Ultrasound of the right breast. . Results were given to the patient verbally at the time of exam. Patient should continue monthly self-breast exams. A clinical breast exam by your physician is recommended on an annual basis. This exam should not preclude additional follow-up of suspicious palpable abnormalities. Note on Priyanka scores and lifetime risk: 1. A Priyanka score greater than 3% is considered moderate risk. If this is the case, consider specialist referral to assess eligibility for a risk reducing agent. 2. If overall lifetime risk for the development of breast cancer is 20% or higher, the patient may qualify for future screening with alternating mammogram and breast MRI. [facility], Workstation: 3, 08/11/2024 7:24 AM. Electronically signed and approved by: Ha Higginbotham M.D. Radiologis
--- NOTE | 2024-08-11 07:52 | USB ---
Patient History: Menarche at age 13. First Full-Term at age 33. Late child-bearing (after 30). Perimenopausal. Patient has history of breast feeding. Colorectal cancer, age 40. Previous chest radiation therapy. Hormonal Contraceptives for 2 years from age 26 until age 29. 12/2011, Excisional Biopsy on the Left side. 12/18/2011, Benign Core Biopsy on the left side. Risk Values: Priyanka 5 year model risk: 2.3%. NCI Lifetime model risk: 16.8%. Prior Study Comparison: 08/06/2023 Right MG 3D work up w/cad RT, [facility]. 02/09/2024 Right MG 3D diag mammo w/cad RT, [facility]. 08/09/2024 Bilateral MG 3D screening mammo w/cad, [facility]. Findings: Stable simple cyst right 10:00 position 9 cm from the nipple measuring 5 x 3 mm unchanged from prior study. No solid masses are detected. Overall Assessment: Benign, BI-RAD 2 Management: Screening Mammogram of both breasts in 1 year. A clinical breast exam by your physician is recommended on an annual basis and results should be correlated with mammographic findings. This exam should not preclude additional follow-up of suspicious palpable abnormalities. Results were given to the patient verbally at the time of exam. [facility], , 08/11/2024 7:49 AM. Electronically signed and approved by: Ha Higginbotham M.D. Radiologis
== END | disposition home or self-care (01) ==
LOC: RADMAMWWP 07:02
PROVIDERS: ATTEND Obstetrics & Gynecology
DX: R92.8 Other abnormal and inconclusive findings on diagnostic imaging of breast (principal); R92.333 Mammographic heterogeneous density, bilateral breasts; C19 Malignant neoplasm of rectosigmoid junction; Z92.3 Personal history of irradiation
CPT/HCPCS: 77061; 77065

== ENCOUNTER → 2024-08-26 | Outpatient (CLI) | payer BC ==
--- NOTE | 2024-08-30 16:01 | BMR ---
EXAM DATE: 08/26/2024 EXAM DESCRIPTION: MRI-Breast Bilat (W/WO Contrast) INDICATION: Dense breasts, history of colon cancer COMPARISON: PRIOR MRIs: None available. Correlation to mammograms: 08/11/2024, 08/09/2024. Correlation to ultrasound: 08/06/2023. CONTRAST: 7 cc Gadavist IV gadolinium contrast TECHNIQUE: Multiplanar multisequence MR imaging of both breasts was performed with a dedicated breast coil. Images were obtained before and after administration of IV gadolinium, using the standard breast mass protocol. Computer aided detection was utilized for interpretation. FINDINGS: LMP: Not provided General breast composition: There are scattered areas of fibroglandular tissue Background parenchymal enhancement: Mild RIGHT BREAST: The T2 weighted series shows no areas of abnormal signal intensity. Review of the dynamic series shows no early or abnormal enhancement. LEFT BREAST: The T2 weighted series shows no areas of abnormal signal intensity. Review of the dynamic series shows no early or abnormal enhancement. LYMPH NODES: There is no evidence of internal mammary or axillary adenopathy. IMPRESSION: RIGHT BREAST: No MR evidence of malignancy. LEFT BREAST: No MR evidence of malignancy. OVERALL ASSESSMENT -- BI- RADS 1: Negative ANNUAL SCREENING BREAST MRI IN ADDITION TO MAMMOGRAPHY IS RECOMMENDED IN PATIENTS WITH LIFETIME RISK OF BREAST CANCER >20% MTDD
--- NOTE | 2024-08-30 17:27 | P.PN ---
Progress Note - Text Progress Note Date: 08/30/24 I have received genetic testing which indicates the patient is positive for a heterozygous mutation in the BRCA2 gene. 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 I spoke with the patient by phone today and the patient states she had a maternal cousin who was positive for BRCA2. With the patient's history of colon cancer, her oncologist, Dr. Zee, ordered the genetic testing. Testing indicates an increased lifetime risk for female breast cancer (45 to 69%), ovarian cancer(13 to 29%), pancreatic cancer(5 to 10%), as well as increased risk for melanoma. She has discussed her results with Dr. Zee who ordered an MRI of the breasts. She is also scheduled to see Dr. Maite Martinez for risk reducing bilateral salpingo-oophorectomy.
== END | disposition home or self-care (01) ==
LOC: RADMRIMAIN 17:07
PROVIDERS: ATTEND Internal Medicine Hematology & Oncology
DX: Z14.8 Genetic carrier of other disease (principal); R92.30 Dense breasts, unspecified; Z85.038 Personal history of other malignant neoplasm of large intestine
CPT/HCPCS: 77049; A9585

== ENCOUNTER → 2024-10-14 | Outpatient (CLI) | payer BC ==
--- NOTE | 2024-10-14 12:34 | CT ---
EXAMINATION TYPE: CT ChestAbdPelvis w con DATE OF EXAM: 10/14/2024 9:01 AM COMPARISON: None. CLINICAL INDICATION: Female, 54 years old with history of C18.0 COLON CANCER, Colon cancer. TECHNIQUE: CT ChestAbdPelvis w con , with sagittal coronal reformats. If MIP/3-D images were created, there are created on a separate workstation. Contrast used:100ml mL of Isovue 300 with IV Contrast, (none if empty) Oral contrast used: with Oral Contrast (none if empty) CT DLP: 731.4 mGycm, Automated exposure control for dose reduction was used. FINDINGS: CT CHEST: Portion of the thyroid visualized is normal. No suspicious lung nodules or focal infiltrates are present. No suspicious adenopathy. The ascending aorta diameter at the level of the main pulmonary artery is 2.4 cm. The main pulmonary artery diameter at the bifurcation is 1.[address] ABDOMEN: Liver: Normal Spleen: Normal Pancreas: Normal Adrenal glands: The adrenal glands are normal. Gallbladder: Normal Kidneys: No masses are evident. No hydronephrosis is present. No cysts are present. Delayed images were obtained through the kidneys, which remain unremarkable. Aorta: Normal Inferior vena cava: Normal. CT PELVIS: There is prominence of the ascending colon. Transverse colon appears normal contrast extends to the d istal descending colon. Fecal debris is within the sigmoid colon There are loops of bowel which are i ncompletely distended or lack oral contrast limiting their evaluation. Appendix: Not identified. Urinary bladder: Normal. Genitourinary structures: Uterus and adnexa appear normal. A cyst may be on the left ovary measuring 2.2 cm Osseous structures: No suspicious lytic or sclerotic lesions. IMPRESSION: 1. No suspicious changes to suggest metastatic colon cancer. [facility], , 10/14/2024 12:31 PM
== END | disposition home or self-care (01) ==
LOC: RADCTMAIN 07:07
PROVIDERS: ATTEND Obstetrics & Gynecology
DX: C18.0 Malignant neoplasm of cecum (principal)
CPT/HCPCS: 71260; 74177; Q9967

== ENCOUNTER → 2025-02-21 | Outpatient (CLI) | payer BC ==
--- NOTE | 2025-02-28 11:27 | BMR ---
EXAM DATE: 02/21/2025 EXAM DESCRIPTION: MRI-Breast Bilat (W/WO Contrast) INDICATION: >20% lifetime risk for malignancy, high risk surveillance. COMPARISON: Comparison was made to prior relevant imaging available in PACS TECHNIQUE: Multiplanar multisequence breast MRI was performed prior to and after administration of 7.5 mL of Gadavist intravenously. Post processing was performed utilizing a [employer] workstation. The technical portion of this study was performed at [facility] with radiological interpretation by [facility] radiology. FINDINGS: There is mild, symmetric background parenchymal enhancement in breasts that are composed of scattered fibroglandular tissue.. RIGHT BREAST: Review of the dynamic contrast enhanced series shows a T2 hyperintense 5 mm enhancing mass with suggestion of fatty hilum at 12 o'clock position mid to posterior depth the breast (series 601, image 176 and series 503, image 442). Otherwise, no rapidly enhancing masses or suspicious enhancement patterns. The T2 weighted series show no abnormality. LEFT BREAST: Review of the dynamic contrast enhanced series shows a 6 mm linear non mass enhancement in the central mid depth of the breast (series 601, image 56 and series 504, image 375), probably benign. Otherwise, no rapidly enhancing masses, suspicious enhancement pattern or other abnormalities. The T2 weighted series show no abnormality. LYMPH NODES: No axillary or internal mammary lymphadenopathy. IMPRESSION: 1. Right breast: A 5 mm enhancing mass at 12 o'clock position mid to posterior depth of the breast, probably benign, possibly intramammary lymph node. Recommend further evaluation with targeted ultrasound. If no definitive sonographic correlate, recommend short-term follow-up with breast MRI in 6 months. BI-RADS Category 3- probably benign. 2. Left breast: A 6 mm linear non mass enhancement in the central mid depth of the breast, probably benign. Recommend short-term follow-up with breast MRI in 6 months. BI-RADS Category 3- probably benign. OVERALL ASSESSMENT- BI-RADS 3 ANNUAL SCREENING BREAST MRI IN ADDITION TO MAMMOGRAPHY IS RECOMMENDED IN PATIENTS WITH LIFETIME RISK OF BREAST CANCER >20% MTDD
== END | disposition home or self-care (01) ==
LOC: RADMRIMAIN 20:00
PROVIDERS: ATTEND Internal Medicine Hematology & Oncology
DX: N63.15 Unspecified lump in the right breast, overlapping quadrants (principal); C18.2 Malignant neoplasm of ascending colon; Z14.8 Genetic carrier of other disease
CPT/HCPCS: 77049; A9585